=== PATIENT | female | born 1955 | race Caucasian/White ===

== ENCOUNTER 2021-08-10 08:07 | Outpatient (CLI) | payer BC, SELFPAY ==
--- NOTE | ~2021-08-10 | DEXA_ITS ---
Bone Density Report Name: KRISTEN MEYERS Age: 66 Sex: Female Ethnicity: White Date of : 1955 Indication: postmenopausal; screening for osteoporosis; cancer; Referring Provider: WILLIAM, MOHAN Dalal Study: Bone densitometry was performed. Exam Date: August 10, 2021 Accession number: [id number] Bone Density: Region BMD T-score Z-score Classification AP Spine(L1-L4) 1.096 0.4 2.2 Normal Femoral Neck (Left) 0.744 -0.9 0.5 Normal Total Hip (Left) 1.085 1.2 2.4 Normal Femoral Neck (Right) 0.835 -0.1 1.3 Normal Total Hip (Right) 1.078 1.1 2.3 Normal Total Hip Mean 1.081 1.2 2.4 Normal World Health Organization criteria for BMD impression classify patients as: Normal (T-score at or above -1.0), Osteopenia (T-score between -1.0 and -2.5), or Osteoporosis (T-score at or below -2.5). 10-year Fracture Risk: FRAX not reported because: All T-scores for Spine Total, Hip Total, Femoral Neck at or above -1.0 Clinical Information Provided by Patient: Has used the following medications: Vitamin D Has the following medical conditions: Cancer Patient maximum height was 63 Menopause Age: 53 Drinks caffeinated beverages Onset of menses at age 14 Number of children 1 Impression: The patient has normal bone mass. Discussion: BONE DENSITY IS ABOVE THE MINIMUM DESIRABLE LEVEL AT ALL SKELETAL SITES TESTED. This patient?s bone mineral density is above the minimum desirable level (T-score -1.0 or better) at all sites measured. The patient should follow a healthful lifestyle (good nutrition with adequate calcium and vitamin D, and appropriate weight-bearing exercise). Follow-Up: Consider repeating this study in 5 years or sooner if there is some new clinical indication. Reported by: KRISTA on 08/10/2021 8:29:00 AM. Reviewed, dictated and finalized at location ARenee LIZ
== END 2021-08-10 08:08 | disposition home or self-care (01) ==
PROVIDERS: PCP Family Medicine Adolescent Medicine; Visit Provider Nurse Practitioner Obstetrics & Gynecology
DX: Z78.0 Asymptomatic menopausal state (principal); M85.89 Other specified disorders of bone density and structure, multiple sites
CPT/HCPCS: 77080

== ENCOUNTER 2022-05-06 09:07 | Emergency (ER) | payer BC, SELFPAY ==
--- NOTE | ~2022-05-06 | XR_ITS ---
EXAMINATION: XR chest 2V 05/06/2022 10:01 INDICATION: Dry cough with congestion PROCEDURE: 2 view chest COMPARISON: No prior studies for comparison. FINDINGS: The lungs are clear. The cardiomediastinal silhouette is within normal limits. There are no pleural effusions. There is no pneumothorax suspected. There is a right breast implant. IMPRESSION: 1: NO ACUTE CARDIOPULMONARY DISEASE. Reviewed, dictated and finalized at location A. RDS TECH
[2022-05-06 09:23] VITALS: BP 153/100; PULSE 118; RESP 16; TEMP 38.7; O2SAT 98
--- NOTE | 2022-05-06 09:31 | ED.URI ---
HPI - URI/Sore Throat General Chief Complaint: Upper Respiratory Infection Stated Complaint: uri Time Seen by Provider: 05/06/22 09:49 Source: patient, RN notes reviewed and old records reviewed Mode of arrival: ambulatory Limitations: no limitations History of Present Illness HPI Narrative: 67-year-old female presents to [facility] with complaints of nasal congestion, sinus pressure cough that has been keeping upright night. Reports chest discomfort only when coughing. Able to reproduce with palpation of the right sternal border. Patient denies fevers. Did not know she was running a fever, 101.7 here in the [facility]. Blood pressure elevated. Reports that she just returned from [place]. History of breast cancer Related Data Home Medications Medication Instructions Recorded Confirmed cholecalciferol (vitamin D3) 10 10 mcg PO DAILY 06/22/21 05/06/22 mcg (400 unit) capsule omega 6-vip-obd-fish oil 1,200 mg 2 cap PO DAILY 06/22/21 05/06/22 (144 mg-216 mg) capsule (Fish Oil) omeprazole 40 mg capsule,delayed 40 mg PO DAILY 06/22/21 05/06/22 release ondansetron HCl 8 mg tablet 8 mg PO Q8H PRN Nausea 06/22/21 05/06/22 abemaciclib 150 mg tablet 150 mg PO BID 01/05/22 05/06/22 (Verzenio) acetaminophen 500 mg capsule 500 mg PO Q6H PRN Anxiety 01/05/22 05/06/22 anastrozole 1 mg tablet 1 mg PO DAILY 01/05/22 05/06/22 docusate sodium 100 mg capsule 100 mg PO BID 01/05/22 05/06/22 lidocaine-prilocaine 2.5 %-2.5 % 1 applic topical ONCE 01/05/22 05/06/22 topical cream Allergies Allergy/AdvReac Type Severity Reaction Status Date / Time prochlorperazine Allergy Unknown MUSCLE Verified 05/06/22 09:29 REACTION Review of Systems Review of Systems: All systems reviewed & are unremarkable except as noted in HPI and below Constitutional: Constitutional: Reports no additional constitutional complaints Eyes: Eyes: Reports no additional eye complaints ENT: Reports as per HPI and Reports nasal congestion Cardiovascular: Cardiovascular: Reports no additional cardiovascular complaints, Denies chest pain and Denies dyspnea Respiratory: Respiratory: Reports as per HPI, Denies chest congestion, Reports cough, Denies dyspnea and Denies wheezing Gastrointestinal: Gastrointestinal: Reports no additional gastrointestinal complaints, Denies abdominal pain, Denies nausea and Denies vomiting Musculoskeletal: Musculoskeletal: Reports no additional musculoskeletal complaints Integumentary/Breasts: Skin/Breast: Reports system reviewed and no additional complaints, except as docu Neurologic: Reports system reviewed and no additional complaints, except as documented Psychiatric: Psychiatric: Reports no additional psychiatric complaints Allergic/Immunologic: Allergic/Immunologic: Reports no additional allergic/immunologic complaints PMFSH Past Medical History Medical History History of breast cancer 1995 Normal colonoscopy 02/22 Surgical History Surgical History History of lumpectomy of right breast 1995 Hx of lumpectomy Family History Family History Father Carcinoma of colon Mother Hypertension Hypercholesterolemia CHF (congestive heart failure) Other Family history of alcoholism Family history of malignant neoplasm Social History Social History Smoking status: Never smoker Second hand tobacco smoke exposure: No Alcohol intake: current Alcohol use details: SOCIALLY Substance use: never Substance use type: does not use Living arrangements: alone Occupation/Education: occupation Gender identity (if verbalized by the patient): Female Sexual Orientation (if Verbalized by the Patient): Straight or Heterosexual Spiritual care concerns: No Agree to blood products: Yes
== END 2022-05-06 10:20 | disposition home or self-care (01) ==
PROVIDERS: Emergency Provider Nurse Practitioner; PCP Family Medicine Adolescent Medicine
DX: J32.9 Chronic sinusitis, unspecified (principal); J40 Bronchitis, not specified as acute or chronic; Z20.822 Contact with and (suspected) exposure to COVID-19; Z85.3 Personal history of malignant neoplasm of breast
CPT/HCPCS: 71046; 87081; 87426; 87804; 87880; 99213; C9803; G0463

== ENCOUNTER → 2023-03-15 08:18 | Outpatient (CLI) | payer BC, SELFPAY ==
--- NOTE | ~2023-03-15 | US_ITS ---
Abdominal Sonogram: Real-time sonographic imaging of the abdomen was performed. Clinical History: Atherosclerosis Findings: The liver appears mildly echogenic, with no evidence of solid mass lesion or bile duct dil atation. Several hepatic cysts are present, largest measuring 5.3 cm. Main portal vein demonstrates n ormal direction of flow. The spleen is normal in size without evidence of focal lesion. The gallblad remington is well distended, and contains several small gallstones. No gallbladder wall thickening. The com mon bile duct measures 7 mm. The visualized pancreas, aorta, and IVC are unremarkable. No aortic ane urysm seen. The right kidney measures 10.9 cm in length and the left kidney measures 11.1 cm. There is no hydronephrosis or renal calculus. Impression: Cholelithiasis. Probable diffuse fatty infiltration of the liver, with several hepatic cysts present, as detailed abo ve. Reviewed, dictated and finalized at [facility]. 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 Probable diffuse fatty infiltration of the liver, with several hepatic cysts pr esent, as detailed above.
== END ==
PROVIDERS: PCP Family Medicine Adolescent Medicine; Visit Provider Family Medicine Adolescent Medicine
DX: I70.0 Atherosclerosis of aorta (principal); K80.20 Calculus of gallbladder without cholecystitis without obstruction
CPT/HCPCS: 76700

== ENCOUNTER 2025-03-16 12:44 | Emergency (ER) | payer MEDICARE, SELFPAY ==
--- NOTE | ~2025-03-16 | XR_ITS ---
EXAMINATION: XR elbow LT min 3V DATE: 03/16/2025 13:11 INDICATION: Injury TECHNIQUE: Left elbow x-rays were obtained. COMPARISON: None. FINDINGS: Displaced intra-articular radial head fracture seen and suspected capitellar fracture with mild displacement as well. No other definite fracture. Soft tissue swelling or joint effusion noted. IMPRESSION: 1. Significantly displaced intra-articular radial head fracture, and suspected capitellar fracture of the articulating humerus. Reviewed, dictated and finalized at location A. [employer]
--- NOTE | ~2025-03-16 | XR_ITS ---
EXAMINATION: XR wrist LT min 3V DATE: 03/16/2025 13:11 INDICATION: Injury TECHNIQUE: Left wrist x-rays were obtained. COMPARISON: None. FINDINGS: No displaced fracture dislocation or aggressive bone lesion. Mild scattered degenerative appearing changes. IMPRESSION: 1. No fracture lucency. Reviewed, dictated and finalized at location A. LAY DECORATOR IMPRESSION: 1. No fracture lucency.
--- NOTE | 2025-03-16 12:47 | ED.FALL ---
HPI - Fall General Chief Complaint: Extremity Injury, Upper Stated Complaint: fall Time Seen by Provider: 03/16/25 12:45 Source: patient Mode of arrival: ambulatory Limitations: no limitations History of Present Illness HPI Narrative: Anita is a 70-year-old female patient presenting to the clinic today with complaints of a fall injuring her left posterior elbow and left wrist last night. She reports she slipped on some wet leaves when taking her trash to the end of her drive way. Denies any neck pain or hitting her head. No LOC. Has been taking tylenol w/codeine and ibuprofen without much relief. Rates pain 11/15 currently. Related Data Home Medications ?Medication ?Instructions ?Recorded ?Confirmed ?Last Taken ?Type cholecalciferol (vitamin D3) 10 10 mcg PO DAILY 06/22/21 03/09/24 Unknown History mcg (400 unit) capsule omega 3-xif-qxx-fish oil 1,200 mg 2 cap PO DAILY 06/22/21 03/09/24 Unknown History (144 mg-216 mg) capsule (Fish Oil) omeprazole 40 mg capsule,delayed 40 mg PO DAILY 06/22/21 03/09/24 Unknown History release acetaminophen 500 mg capsule 500 mg PO Q6H PRN Anxiety 01/05/22 03/09/24 Unknown History anastrozole 1 mg tablet 1 mg PO DAILY 01/05/22 03/09/24 Unknown History lidocaine-prilocaine 2.5 %-2.5 % 1 applic topical ONCE 01/05/22 03/09/24 Unknown History topical cream Allergies Allergy/AdvReac Type Severity Reaction Status Date / Time prochlorperazine Allergy Unknown MUSCLE Verified 03/16/25 12:47 REACTION lisinopril AdvReac Intermediate Cough Verified 03/16/25 12:47 Review of Systems Review of Systems: Pertinent positives per HPI. Patient denies any fever, chills, rash, headache, visual changes, dizziness, cough, shortness of breath, chest pain, palpitations, nausea, vomiting, diarrhea, constipation, abdominal pain, or any urinary issues. [facility] Past Medical History Medical History Primary osteoarthritis of left foot Normal colonoscopy 02/22 History of breast cancer 1995 & 04/29 Surgical History Surgical History History of mastectomy right mastectomy 2021 then reconstruction surgery with implant History of lumpectomy of right breast 1995 Family History Family History Father Carcinoma of colon Mother Hypertension Hypercholesterolemia CHF (congestive heart failure) Other Family history of alcoholism Family history of malignant neoplasm Social History Social History Smoking status: Never smoker Second hand tobacco smoke exposure: No Alcohol intake: current Alcohol use details: SOCIALLY Substance use: never Substance use type: does not use Lack of Transportation: No Lack of Food: Never True Current Housing: I Have Housing Concerned About Future Housing: No Difficulty Paying Gas/Electric Bills: No Difficulty Paying for Meds: No Currently Unemployed: No Education: Bachelor's Degree Difficulty w/ Childcare or Family Care: No Living arrangements: alone Occupation/Education: occupation Gender identity (if verbalized by the patient): Female Sexual Orientation (if Verbalized by the Patient): Straight or Heterosexual Spiritual care concerns: No Agree to blood products: Yes Comments At the time of my signature, I reviewed and agree with the nursing past medical, surgical, social, and family history. There is no relevant family history pertinent to the patient complaint. Exam Narrative: General: Well-developed, obese, in no apparent distress Head: Normocephalic, atraumatic. Cardio: Regular rate and rhythm, s1 and s2 normal, no murmur appreciated. Resp: Clear to auscultation bilaterally, no rhonchi, rales, wheezing or rubs. Musculoskeletal: No deformity, posterior tenderness to the to palpation over the left posterior/lateral elbow and over the left radial wrist, pain with flexion and extension of the left elbow and flexion and extension of the left wrist, limited ROM due to pain, muscle strength strong and equal, peripheral pulse strong, no edema, no cyanosis, normal gait and station Course Course Level of Care: [facility] Visit Vital Signs Vital signs: Vital Signs Temperature 37.1 C 03/16/25 12:56 Pulse Rate 101 H 03/16/25 12:56 Respiratory Rate 18 03/16/25 12:56 Blood Pressure 151/78 H 03/16/25 12:56 Pulse Oximetry 97 03/16/25 12:56 Oxygen Delivery Room Air 03/16/25 12:56 Temperature 37.1 C 03/16/25 12:56 Pulse Rate 101 H 03/16/25 12:56 Respiratory Rate 18 03/16/25 12:56 Blood Pressure 151/78 H 03/16/25 12:56 Pulse Oximetry 97 03/16/25 12:56 Oxygen Delivery Room Air 03/16/25 12:56 MDM MDM Narrative Medical decision making narrative: At the time of visit patient is resting comfortably on the exam table. Patient appears to be nontoxic. Complaints of a fall injuring her left posterior elbow and left wrist last night. She reports she slipped on some wet leaves when taking her trash to the end of her drive way. Denies any neck pain or hitting her head. No LOC. Has been taking Tylenol w/codeine and ibuprofen without much relief. Rates pain 8/10 currently. On exam patient has tenderness to palpation over the left posterior elbow and left radial wrist. No bruising or swelling noted. No deformity, posterior tenderness to the to palpation over the left posterior elbow and over the left radial wrist, pain with flexion and extension of the left elbow and aches flexion extension of the wrist, grossly normal range of motion, muscle strength strong and equal, peripheral pulse strong, no edema. X-ray of the left wrist and left elbow were ordered. Patient had 1 episode of vomiting in the exam room- Ondansetron 8mg ODT ordered Medications: Ondansetron 8mg ODT given in the clinic today. Diagnostics: X-ray of the left wrist and elbow were ordered. X-ray of the left wrist is negative for any sign of fracture or malalignment. X-ray of the left elbow shows a closed displaced radial head fracture with possible fracture of the humerus as well Plan: Patient has a left displaced proximal radial head fracture. Long-arm OCL splint was placed on the left arm and arm sling was given. Contacted Dr. Dawson office and he was able to review the images and is able to see the patient. Patient to call orthopedic doctor's office when she leaves here and they can potentially schedule an appointment for tomorrow. Supportive measures were discussed with the patient and they voiced understanding discharge instructions and agrees to treatment plan. Return precautions reviewed Differential Diagnosis Differential Diagnosis: Differential diagnostic considerations for fall injuries include syncope, concussion with loss of consciousness, concussion without loss of consciousness, vertebral fracture, extremity fracture/dislocation. Imaging Data Radiologist's impression: ITS Impressions Elbow X-Ray 03/16/25 13:12 IMPRESSION: 1. Significantly displaced intra-articular radial head fracture, and suspected capitellar fracture of the articulating humerus. Wrist X-Ray 03/16/25 13:14 IMPRESSION: 1. No fracture lucency. Discharge Plan Discharge Clinical Impression: Left wrist sprain Qualifiers: Encounter type: initial encounter Wrist sprain location: radiocarpal joint Qualified Code(s): S63.522A - Sprain of radiocarpal joint of left wrist, initial encounter Closed fracture of radial head Qualifiers: Encounter type: initial encounter Fracture alignment: displaced Laterality: left Qualified Code(s): S52.122A - Displaced fracture of head of left radius, initial encounter for closed fracture Fracture, humerus closed Qualifiers: Encounter type: initial encounter Humerus Location: distal Fracture morphology: other fracture Fracture alignment: nondisplaced Laterality: left Qualified Code(s): S42.495A - Other nondisplaced fracture of lower end of left humerus, initial encounter for closed fracture Patient Disposition: Home Condition: Stable Instructions: Antibiotic Form, Elbow Fracture (ED), Wrist Sprain (ED) Additional Instructions: X-ray of the left wrist is negative for any fracture or malalignment. X-ray of the left elbow shows a displaced radial head fracture Rest, ice, elevate, arm sling, and long arm OCL as directed Tylenol/motrin for pain as discussed. May take hydrocodone as needed for moderate to severe pain Follow up with your PCP if symptoms persist more than 1 week. Follow-up with orthopedic provider-call Dr. Dawson office today to schedule an appointment. Office phone number is . Option 2 for new patients. Patient Language: Tamazight Prescriptions: New hydrocodone-acetaminophen 5-325 mg tablet 1 tablet PO Q8H PRN (Reason: pain) 3 Days Qty: 10 0RF ondansetron 8 mg tablet,disintegrating 8 mg PO Q8H PRN (Reason: nausea and vomiting) 3 Days Qty: 10 0RF No Action acetaminophen 500 mg capsule 500 mg PO Q6H PRN (Reason: Anxiety) anastrozole 1 mg tablet 1 mg PO DAILY lidocaine-prilocaine 2.5-2.5 % cream 1 applic topical ONCE omega 0-nff-nbp-fish oil [Fish Oil] 1,200 (144-216) mg capsule 2 cap PO DAILY omeprazole 40 mg capsule,delayed release(DR/EC) 40 mg PO DAILY cholecalciferol (vitamin D3) 10 mcg (400 unit) capsule 10 mcg PO DAILY lorazepam 0.5 mg tablet 0.5 mg PO QHS PRN (Reason: insomnia) Qty: 30 0RF losartan 100 mg tablet 100 mg PO DAILY Qty: 90 3RF citalopram 40 mg tablet See Rx Instructions .ROUTE .COMPLEX Qty: 90 3RF Dose Instruction: Take 1 tablet by mouth once daily Rx Instructions: Take 1 tablet by mouth once daily Follow-up/Referrals: Joaquín Dawson MD [Physician, Orthopedics] - 1 Day Referral Note: Closed displaced fracture of the left radial head Clinical Impression: Closed fracture of radial head Kulwant Del Rio MD [Primary Care Provider, Family Practice] Stand Alone Forms: Work/School Release IP Time of Disposition: 13:15 Quality NIHSS Nursing Documentation ED NIHSS nursing documentation: reviewed/agree
[2025-03-16 12:56] VITALS: BP 151/78; PULSE 101; RESP 18; TEMP 37.1; O2SAT 97
--- NOTE | 2025-03-16 15:26 | PC.NURSE ---
Pt. declined ice pack, has multiple ice packs at home.
--- NOTE | 2025-03-16 15:27 | PC.NURSE ---
After splint was applied pt. felt nauseous and vomited. Was offered Zofran and declined stating she felt better after having vomited and that she had medication at home for nausea if she needed it.
== END 2025-03-16 13:54 | disposition home or self-care (01) ==
PROVIDERS: Emergency Provider Nurse Practitioner Family; PCP Family Medicine Adolescent Medicine
DX: S63.502A Unspecified sprain of left wrist, initial encounter (principal); S52.122A Displaced fracture of head of left radius, initial encounter for closed fracture; W01.0XXA Fall on same level from slipping, tripping and stumbling without subsequent striking against object, initial encounter; M19.072 Primary osteoarthritis, left ankle and foot; Z85.3 Personal history of malignant neoplasm of breast; Z90.11 Acquired absence of right breast and nipple
CPT/HCPCS: 29105; 73080; 73110; 99214; A4565; G0463

== ENCOUNTER 2025-03-22 07:57 | Outpatient (CLI) | payer MEDICARE, SELFPAY ==
--- NOTE | 2025-03-22 08:00 | ECG_ITS ---
Test Date: 2025-03-22 08:15:21 Measurements Intervals [place] Rate: 85 P: 46 [place]: 142 QRS: -8 QRSD: 90 T: 35 QT: 383 QTc: 456 Interpretive Statements SINUS RHYTHM INCOMPLETE RIGHT BUNDLE BRANCH BLOCK DELAYED PRECORDIAL R/S TRANSITION LOW QRS VOLTAGE IN PRECORDIAL LEADS BORDERLINE T WAVE ABNORMALITY- ANTEROLATERAL LEADS BASELINE ARTIFACT- I, II AVR BORDERLINE ECG No previous ECG available for comparison Electronically Signed On 03-22-2025 08:48:56 PATIENT RELATIONS DIRECTOR by Kaveh Davis D.O.
== END 2025-03-22 07:58 | disposition home or self-care (01) ==
PROVIDERS: PCP Family Medicine Adolescent Medicine; Visit Provider Orthopaedic Surgery
DX: Z01.818 Encounter for other preprocedural examination (principal); I10 Essential (primary) hypertension; I45.10 Unspecified right bundle-branch block; R94.31 Abnormal electrocardiogram [ECG] [EKG]
CPT/HCPCS: 93005

== ENCOUNTER 2025-03-24 02:27 | Day surgery (SDC) | payer MEDICARE, SELFPAY ==
[2025-03-19 13:05] VITALS: BMI 31.6
--- NOTE | 2025-03-19 13:16 | PC.NURSE ---
[facility] has started construction of its new state of the art ER which will open Spring 2026. With this, we anticipate parking may be a challenge for some our surgical patients and families. Parking spaces are limited but are available for all Surgical, obstetrics, and ER patients sharing this lot. If you arrive and find you are having a hard time finding a parking space, please note that we understand the challenges, please drive around the hospital and park near Hospital Entrance 1. When you enter this entrance, you can ask a volunteer to direct or take you back to the surgical waiting area to check in. We appreciate everyone?s understanding of these expected challenges while we build for your future. Report to the Outpatient Waiting Room, entrance under the green pavilion located off [address], at time __11:00am on date _03/24/25 . Planned Procedure Time: __1:00pm .? Time changes happen often and if your time is changed the preop area will call you the afternoon before. - You and your visitor will be asked to self-screen and do not enter if you have any COVID symptoms. Please call surgeon if you need to reschedule. - A mask is optional within the hospital at this time. Patients may have clear liquids (water, carbonated beverages, clear teas, apple juice) until 3 hours prior to surgery with a maximum of 20 ounces. - No food from midnight until time of surgery and no smoking, or chewing tobacco (or any form of nicotine). No chewing gum, candy or mints. (10:00am) Take only the following medications with a SIP of water on the morning of surgery: Citalopram and Hydrocodone if needed DO NOT STOP ANY OF YOUR OTHER PRESCRIPTION MEDICATIONS PRIOR TO SURGERY EXCEPT THE FOLLOWING Hold all vitamins and supplements for 3 days per anesthesiologist. Last dose 03/20/26 Medications to discontinue per physician NONE Date to take last dose NONE Please no make-up, nail romanian, hairspray, perfume, deodorant, or body powder the day of surgery.? No jewelry (including any body piercings) or valuables the day of surgery, leave them at home.? Please take a shower or bath the night before, or the morning of, surgery with an antibacterial soap.? Wear comfortable, loose fitting clothing.? - Jewelry must be removed prior to entering the operating room.? Rings and piercings that are not removed may be cut off. - The hospital will not accept responsibility for valuables.? - Please leave all valuables, including medications, at home the day of surgery. If you are going home after surgery, a licensed courier driver must drive you home.? - NO public transportation without another adult if you receive anesthesia. - We recommend that an adult stay with you for 24 hours following discharge. - We also recommend that you do not drive, make important decision, drink alcoholic beverages, or take any drugs that were not prescribed by your health care provider for at least 24 hours after your discharge time. Follow any additional instructions given to you from your surgeon. Telephone instructions given to ___Patient and asked if any additional questions and then verbalized understanding. Patient advised to call surgeon office or pre surgery nurse liaison [phone] if any additional questions.
[2025-03-24] VITALS (9 sets, daily range): BP systolic 114–160; BP diastolic 70–90; PULSE 67–103; RESP 12–18; TEMP 36.1; O2SAT 90–100
--- NOTE | ~2025-03-24 | XR_ITS ---
EXAM/PROCEDURE: XR surgery orthopedic HISTORY: ORIF LEFT ELBOW COMPARISON: None available. TECHNIQUE: Fluoroscopic images for orthopedic procedure. Fluoroscopy time: 5.0 seconds DAP: 0.2206 [place]ess per square centimeter IMPRESSION: Fluoroscopic images provided for orthopedic procedure. No radiologist present. See operative/procedure notes for complete evaluation. Reviewed, dictated and finalized at location A. AGE LINKER
[2025-03-24] MEDS: ACETAMINOPHEN 500 MG TABLET 1000 MG PO (11:18)
--- NOTE | 2025-03-24 11:33 | WPDHPUPDATE1 ---
History and Physical Update Update Date/Time: 03/24/25 11:33 History and Physical has been reviewed, including an updated exam of the patient. There are NO changes in the patient's condition. Risks, benefits, and alternatives have been discussed and questions answered. Patient agrees to proceed with procedure.
[2025-03-24] MEDS: KETOROLAC 15 MG/ML VIAL (*BKC) IV PUSH (11:46)
--- NOTE | 2025-03-24 12:21 | WPDANESEPPF ---
Anes - Initial Pre Proc Eval Procedure: Operation Date: 03/24/25 13:00 Proposed Procedures p Open Reduction Internal Fixation Left Elbow - Joaquín Dawson MD Date/Time: 03/24/25 12:21 Surgeon: Joaquín Dawson MD Pre Op Diagnosis: left radial head fracture Patient Data Age: 70 Gender: F Height: 1.6 m Weight: 82.25 kg Last Vital Signs Temp 36.1 C L 03/24/25 10:55 Pulse 103 H 03/24/25 10:55 Resp 16 03/24/25 10:55 BP 160/90 H 03/24/25 10:55 Pulse Ox 95 03/24/25 10:55 O2 Del Method Room Air 03/24/25 10:55 Allergies Allergy/AdvReac Type Severity Reaction Status Date / Time prochlorperazine Allergy Unknown MUSCLE Verified 03/19/25 13:01 REACTION lisinopril AdvReac Intermediate Cough Verified 03/19/25 13:01 Home Medications ?Medication ?Instructions ?Recorded ?Confirmed ?Type cholecalciferol (vitamin D3) 10 10 mcg PO DAILY 06/22/21 03/24/25 History mcg (400 unit) capsule omega 7-mgo-oju-fish oil 1,200 mg 2 cap PO DAILY 06/22/21 03/24/25 History (144 mg-216 mg) capsule (Fish Oil) omeprazole 40 mg capsule,delayed 40 mg PO DAILY 06/22/21 03/24/25 History release acetaminophen 500 mg capsule 500 mg PO Q6H PRN Anxiety 01/05/22 03/19/25 History lidocaine-prilocaine 2.5 %-2.5 % 1 applic topical ONCE 01/05/22 03/19/25 History topical cream lorazepam 0.5 mg tablet 0.5 mg PO QHS PRN insomnia #30 tabs 02/25/23 03/24/25 Rx citalopram 40 mg tablet See Rx Instructions .Route 04/07/24 03/24/25 Rx .COMPLEX #90 tabs losartan 100 mg tablet 100 mg PO DAILY #90 tabs 04/07/24 03/24/25 Rx hydrocodone 5 mg-acetaminophen 325 1 tablet PO Q8H PRN pain 3 days 03/16/25 03/24/25 Rx mg tablet #10 tabs ondansetron 8 mg disintegrating 8 mg PO Q8H PRN nausea and 03/16/25 03/19/25 Rx tablet vomiting 3 days #10 tabs Patient hx anesthesia problems: none Family hx anesthesia problems: none Results Review: All pre-operative results and documents have been reviewed as part of the pre-operative evaluation. REPLACED BY [facility] Past Medical History Medical History Primary osteoarthritis of left foot Normal colonoscopy 02/22 History of breast cancer 1995 & 04/29 Surgical History Surgical History History of mastectomy right mastectomy 2021 then reconstruction surgery with implant History of lumpectomy of right breast 1995 Family History Family History Father Carcinoma of colon Mother Hypertension Hypercholesterolemia CHF (congestive heart failure) Other Family history of alcoholism Family history of malignant neoplasm Social History Social History Smoking status: Never smoker Second hand tobacco smoke exposure: No Alcohol intake: current Drinks per week: 3 Alcohol use details: SOCIALLY Substance use: never Substance use type: does not use Other substance usage details: Gummies to help sleep Lack of Transportation: No Lack of Food: Never True Current Housing: I Have Housing Concerned About Future Housing: No Difficulty Paying Gas/Electric Bills: No Difficulty Paying for Meds: No Currently Unemployed: No Education: Bachelor's Degree Difficulty w/ Childcare or Family Care: No Living arrangements: alone Occupation/Education: occupation Gender identity (if verbalized by the patient): Female Sexual Orientation (if Verbalized by the Patient): Straight or Heterosexual Spiritual care concerns: No Agree to blood products: Yes Anes - Eval Final PreProcedure Day of Procedure 03/24/25 12:21 Patient weight: obese Heart: regular rate and rhythm Lungs: clear to auscultation Airway: Mallampati scale class II Neurological: alert and oriented Last oral intake: >/= 8 hours ASA classification: III Emergent: no Anesthetic plan: proceed Anesthesia type and monitoring: general LMA and standard monitoring Results Review: All pre-operative results and documents have been reviewed as part of the pre-operative evaluation. Informed Consent: The patient's anesthetic plan and its attendant risks and benefits were discussed with the patient/family/POA. Questions were solicited and answers provided to the satisfaction of the patient/family/POA.
[2025-03-24] MEDS: ceFAZolin 2 GM in SODIUM CHLORIDE 0.9% IV 50 ML 100 ML IVPB (12:55)
[2025-03-24] MEDS: fentaNYL CITRATE INJ (*CRX) 100 MCG/2 ML VIAL 25 MCG IV PUSH ×6 (15:21→15:48)
--- NOTE | 2025-03-24 15:31 | P.OP_ITS ---
Procedure Note - Detailed Date of Procedure 03/24/25 Pre-op Diagnosis left radial head fracture Post-op Diagnosis Same Procedure Performed open reduction internal fixation left radial head fracture Surgeon Joaquín Dawson MD Trust Operations Assistant 1st assist Anesthesia General Indications 70-year-old woman who fell and sustained a left radial head fracture with displacement. She presents for operative treatment. Findings Comminuted fracture of the radial head with displacement. Description of Procedure Patient identified in the preoperative holding. Informed consent given. Operative extremity marked. Patient received intravenous antibiotics. Patient brought to the operating room where underwent general anesthetic by anesthesia team. Positioned supine on operating room table. Time-out performed confirming the patient, site of the surgery and the plan. Left arm prepped and draped in usual sterile surgical fashion using ChloraPrep skin solution. Arm exsanguinated and tourniquet inflated to 250 mmHg. A lateral approach was utilized. Oblique incision made over the lateral elbow with a 15 blade knife. Hemostasis controlled electrocautery. Fascia incised in line with skin incision. Interval between the extensor and the anconeus developed. This allowed exposure of the radial head joint capsule. Capsule was split in line with skin incision. Care was taken to not excessively retract or place pressure over the anterior portion of the radius. The fracture radial head was identified and cleaned with a rongeur and dental pick. The joint had several small fragments as well as coagulum. This was cleaned out with a rongeur and flushed out with saline. Radial head was then reduced and fixed with 2.5 mm headless screw and a 2.0 cannulated partial threaded screw. Additional fixation with a T-plate was provided utilizing 2 holes in the radial shaft and 2 holes in the radial head. This was a 2 mm plate with screws. Elbow was taken through range of motion of the fracture was noted to be stable and reduced. Image intensification confirmed reduction and placement of the hardware. Wound was irrigated with saline and capsule repaired with 2-0 Vicryl interrupted suture, fascia repaired with 2-0 Vicryl interrupted suture. Skin repaired with 3-0 Monocryl interrupted suture and a running 4-0 Monocryl subcuticular stitch. Sterile dressing applied. The patient was then woken from anesthesia, extubated and taken to the recovery room in stable condition. All sponge, needle, instrument counts were correct at the end of the case. Implants 2.0 mm T-plate and 4 screws. 2.5 mm headless screw, 2.0 mm partially-threaded cannulated screw -Arthrex Estimated Blood Loss 10 Tourniquet Time Total Tourniquet Time: 90 Drains No Packing No Pathology None sent Complications None Condition Stable Disposition PACU [facility] Billing Surgery - Charge Forward: Surgery Billing ([id number])
[2025-03-24] MEDS: oxyCODONE HCL (*CRX) 5 MG TAB IR PO (16:38)
== END 2025-03-24 17:29 | disposition home or self-care (01) ==
PROVIDERS: PCP Family Medicine Adolescent Medicine; Visit Provider Orthopaedic Surgery
PROC: (CPT 24665; principal; 2025-03-24 13:00)
DX: S52.122A Displaced fracture of head of left radius, initial encounter for closed fracture (principal); W01.0XXA Fall on same level from slipping, tripping and stumbling without subsequent striking against object, initial encounter; E66.9 Obesity, unspecified; Z68.32 Body mass index [BMI] 32.0-32.9, adult
CPT/HCPCS: 24665; 99199; J0690; A9270; J1885; J2003; J2405; J2704; J3010